=== PATIENT | female | born 2000 | race Hispanic/Latino ===

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

== ENCOUNTER → 2022-04-25 | Outpatient (CLI) | payer MEDICAID | LOC: RAH 10:54 | PROVIDERS: ATTEND Internal Medicine Gastroenterology | DX: R10.13 Epigastric pain (principal); R11.0 Nausea; R14.0 Abdominal distension (gaseous); R63.4 Abnormal weight loss | CPT/HCPCS: 78264; A9541 ==

== ENCOUNTER 2022-06-06 13:01 | Emergency (ER) | payer MEDICAID ==
[~2022-06-06] VITALS: Ht 152.4 cm; Wt 73.5 kg
[2022-06-06 13:32] LABS: BASOPHILS % (AUTO) 0.5 % (0.0-5.0); EOSINOPHILS % (AUTO) 0.6 % (0.0-8.0); HEMATOCRIT 35.4 % (36-48); LYMPHOCYTES % (AUTO) 20.4 % (21.0-51.0); MEAN CORPUSCULAR HEMOGLOBIN 31.5 pg (27.0-33.0); MEAN CORPUSCULAR HGB CONC 35.3 g/dL (32.0-36.0); MEAN CORPUSCULAR VOLUME 89.2 fL (80-100); MONOCYTES % (AUTO) 7.8 % (3.0-13.0); NEUTROPHILS % (AUTO) 70.4 % (40.0-77.0); PLATELET COUNT (AUTO) 261 K/uL (130-400); RED BLOOD CELL COUNT(AUTO) 3.97 MIL/uL (4.00-5.50); WHITE BLOOD COUNT (AUTO) 10.3 K/uL (4.8-10.8)
[2022-06-06 13:37] LABS: APPEARANCE,URINE TURBID (CLEAR); BILIRUBIN,URINE NEGATIVE (NEGATIVE); COLOR,URINE YELLOW (YELLOW); GLUCOSE, URINE (UA) NEGATIVE (NEGATIVE); KETONES,URINE 10 mg/dL (NEGATIVE); LEUKOCYTE ESTERASE ,URINE NEGATIVE Leu/uL (NEGATIVE); NITRATE,URINE NEGATIVE (NEGATIVE); OCCULT BLOOD,URINE SMALL (NEGATIVE); PROTEIN,URINE 30 mg/dL (NEGATIVE); UROBILINOGEN,URINE 0.2 mg/dL (0.2-1.0)
[2022-06-06 13:39] LABS: HCG,QUALITATIVE URINE POSITIVE (NEGATIVE)
[2022-06-06 13:50] LABS: BACTERIA,URINE RARE /HPF (None Seen); MUCUS,URINE MOD LPF (None Seen); RBC,URINE 26-50 /HPF (0-1); SQUAMOUS EPITHELIAL CELL,UR FEW /HPF (0-2)
[2022-06-06 13:50] LABS: CREATININE 0.6 mg/dL (0.5-1.5); POTASSIUM 3.6 mmol/L (3.5-5.1)
[2022-06-06 13:53] LABS: TOTAL PROTEIN, SERUM 7.8 g/dL (6.0-8.3)
[2022-06-06 15:15] VITALS: BP 105/67
== END 2022-06-06 15:15 | disposition home or self-care (01) ==
LOC: EDH 13:01
DX: O26.891 Other specified pregnancy related conditions, first trimester (principal); R31.29 Other microscopic hematuria; O21.9 Vomiting of pregnancy, unspecified; R10.2 Pelvic and perineal pain; Z3A.01 Less than 8 weeks gestation of pregnancy
CPT/HCPCS: 36415; 76801; 80053; 81001; 81025; 84702; 85025

== ENCOUNTER 2023-07-06 07:57 | Emergency (ER) | payer MEDICAID, MEDICARE, OTHER ==
[~2023-07-06] VITALS: Ht 149.9 cm; Wt 47.6 kg
[2023-07-06 09:01] LABS: HEMATOCRIT 35.6 % (36-48); MEAN CORPUSCULAR HEMOGLOBIN 31.3 pg (27.0-33.0); MEAN CORPUSCULAR HGB CONC 35.4 g/dL (32.0-36.0); MEAN CORPUSCULAR VOLUME 88.3 fL (80-100); RED BLOOD CELL COUNT(AUTO) 4.03 MIL/uL (4.00-5.50)
[2023-07-06 10:05] LABS: CREATININE 0.6 mg/dL (0.5-1.5); POTASSIUM 3.6 mmol/L (3.5-5.1)
[2023-07-06 10:26] LABS: APPEARANCE,URINE CLOUDY (CLEAR); BILIRUBIN,URINE NEGATIVE (NEGATIVE); COLOR,URINE LIGHT-YELLOW (YELLOW); GLUCOSE, URINE (UA) NEGATIVE (NEGATIVE); KETONES,URINE NEGATIVE (NEGATIVE); LEUKOCYTE ESTERASE ,URINE 25 Leu/uL (NEGATIVE); NITRATE,URINE NEGATIVE (NEGATIVE); OCCULT BLOOD,URINE LARGE (NEGATIVE); PH,URINE 7.5 (5.0-8.0); PROTEIN,URINE 20 mg/dL (NEGATIVE); UROBILINOGEN,URINE 0.2 mg/dL (0.2-1.0)
[2023-07-06 10:28] LABS: HCG,QUALITATIVE URINE NEGATIVE (NEGATIVE)
[2023-07-06 10:29] LABS: ADD UA MICROSCOPIC YES
[2023-07-06 10:32] LABS: BACTERIA,URINE RARE /HPF (None Seen); MUCUS,URINE RARE LPF (None Seen); RBC,URINE 51-100 /HPF (0-1); SQUAMOUS EPITHELIAL CELL,UR MOD /HPF (0-2)
[2023-07-06] MEDS: ONDANSETRON 4MG INJ IVP ONE (11:04)
[2023-07-06] MEDS: 0.9%NACL 1000ML 1,000 ML IV ONE (11:05)
[2023-07-06] MEDS: ONDANSETRON 4MG INJ ONE (11:05)
[2023-07-06] MEDS ORDERED: NITR100C PO (11:33)
[2023-07-06] MEDS ORDERED: ONDA4TAB10 PO (11:33)
[2023-07-06 12:04] VITALS: BP 120/72; PULSE 94; RESP 18; O2SAT 98
[2023-07-06] MEDS: KETOROLAC 15MG/ML VIAL (15MG/ML) IM ONE (12:09)
[2023-07-06] MEDS: CEFTRIAXONE 1G VIAL IVPB ONE (12:09)
[2023-07-06 12:10] VITALS: TEMP 100.1
[2023-07-06] MEDS: ACETAMINOPHEN 325 MG TAB PO ONE (12:10)
[2023-07-06] MEDS: ACETAMINOPHEN 325 MG TAB ONE (12:11)
[2023-07-06] MEDS: ONDANSETRON ODT 4MG TAB SL ONE (12:18)
== END 2023-07-06 13:44 | disposition home or self-care (01) ==
LOC: EDH 07:57
DX: N39.0 Urinary tract infection, site not specified (principal); Z98.890 Other specified postprocedural states
CPT/HCPCS: 99284; 96365; 96375; 80048; 85027; 87040 ×2; 87088; 83605; 81001; 81025; 36415; 96372; J7030; J0696; J2405; J1885